=== PATIENT | male | born 1955 | race Caucasian/White ===

== ENCOUNTER 2018-04-19 14:17 | Emergency (ER) | payer OTHER ==
[~2018-04-19] VITALS: Ht 182.9 cm; Wt 72.6 kg
[2018-04-19 14:23] VITALS: BP 125/75
--- NOTE | 2018-04-19 14:35 | NUR ---
62 yo m bib self w/ left third digit laceration. pt reports that he was working at home and a heavy piece of equipment sliced his finger. pt presents w/ bleeding well controlled of affected finger . cap refill less than 3 seconds. pulses palpable. skin flap noted. full thickness, 2/10 pain aching. will continue wo monitor hx denies rx denies
--- NOTE | 2018-04-19 14:40 | NUR ---
dr cavazos at bedside for pt eval
[2018-04-19] MEDS ORDERED: LIDOCAINE 1% 500 MG/50 ML VIAL INJ SCH (14:45)
[2018-04-19] MEDS ORDERED: LIDOCAINE MPF 1% - 5 mL VIAL 5 ML ONE (14:53)
[2018-04-19] MEDS ORDERED: NEOMYCIN/POLYMYXIN/BACITRACIN 0.9 GM/1 PKT TP ONE (15:10)
[2018-04-19 15:30] VITALS: BP 125/75
--- NOTE | 2018-04-19 15:30 | NUR ---
Patient discharged with v/s stable. Written and verbal after care instructions given and explained. Patient alert, oriented and verbalized understanding of instructions. Ambulatory with steady gait. All questions addressed prior to discharge. ID band removed. Patient advised to follow up with PMD. Rx of Cephelaxin 500mg, Naprosyn 375mg given. Patient educated on indication of medication including possible reaction and side effects. Opportunity to ask questions provided and answered.
== END 2018-04-19 15:30 | disposition home or self-care (01) ==
LOC: MED 14:17
DX: S61.213A Laceration without foreign body of left middle finger without damage to nail, initial encounter (principal); W20.8XXA Other cause of strike by thrown, projected or falling object, initial encounter; Y93.89 Activity, other specified; Y92.89 Other specified places as the place of occurrence of the external cause; Y99.8 Other external cause status
CPT/HCPCS: 12002; 90471; 90715; 99283; J2001